=== PATIENT | female | born 2000 | race Caucasian/White ===

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

== ENCOUNTER → 2018-06-29 | Outpatient (CLI) | payer BC | LOC: MC.RAD 13:52 | DX: N63.20 Unspecified lump in the left breast, unspecified quadrant (principal) ==

== ENCOUNTER → 2020-02-22 | Outpatient (CLI) | payer BC | LOC: COL.RAD | DX: R19.8 Other specified symptoms and signs involving the digestive system and abdomen (principal) ==